=== PATIENT | female | born 1955 | race Caucasian/White ===

== ENCOUNTER 2019-03-19 11:34 | Observation (INO) | payer BC ==
[~2019-03-19] VITALS: Ht 127 cm; Wt 85.4 kg
[2019-03-19] VITALS (7 sets, daily range): BP systolic 102–174; BP diastolic 67–92
--- NOTE | 2019-03-19 11:50 | NUR ---
PT A DIRECT ADMIT FROM DR. FOOTE. TO ICU BED 6. PT TRANSFERRED SELF FROM TO BED. PT PRESENTED DIAPHORETIC, C/O CP. ST ON TELEMETRY HR 102, B/P 174/92, RR-21, T- 99.2. PT WT 188.4LBS ON STANDING SCALE. RESPIRATIONS EVEN/UNLABORED. ASSESSMENT COMPLETED. PT ORIENTED TO UNIT, BED AND CALL LIGHT SYSTEM. CALL LIGHT IN REACH. WILL MONITOR.
--- NOTE | 2019-03-19 12:00 | NUR ---
DR. FOOTE AT BEDSIDE FOR ASSESSMENT AND TO DISCUSS PLAN OF CARE.
--- NOTE | 2019-03-19 12:05 | NUR ---
RT AT BEDSIDE FOR O2 HUMIDIFIER, EKG AND ABG. LAB AT BEDSIDE FOR BLOOD DRAW.
[2019-03-19 12:44] LABS: HEMATOCRIT 40.9 % (37.0-47.0); HEMOGLOBIN 13.5 g/dl (12.0-16.0); IMMATURE GRANULOCYTES 0.8 % (0.0-5.0); MEAN CELL VOLUME 87.4 fL CALC (80.0-100.0); MEAN CORPUSCULAR HGB 28.8 pG CALC (26.0-32.0); NEUT# 11.19 thou/uL (2.00-7.15); RED BLOOD COUNT 4.68 mill/uL (4.20-5.60); RED CELL DISTRI WIDTH 13.5 % (11.5-15.5)
--- NOTE | 2019-03-19 13:00 | NUR ---
RADIOLOGY AT BEDSIDE FOR CXR.
[2019-03-19 13:09] LABS: ANION GAP 14 (6-22 (CALC)); BUN 10 mg/dL (8-23); BUN/CREATININE RATIO 21 (12-20 (CALC)); CARBON DIOXIDE 26 mmol/l (22-30); CHLORIDE 106 mmol/l (95-108); CREATININE 0.5 mg/dL (0.5-1.0); GFR > 60 ML/MIN (>=60 (CALC)); GFR FOR AFR.AMER. > 60 ML/MIN (>=60 (CALC)); POTASSIUM 4.1 mmol/l (3.5-5.1); SODIUM 141 mmol/l (137-146)
--- NOTE | 2019-03-19 14:00 | NUR ---
PT RESTING IN BED WATCHING TV, PT DENIES CP AT THIS TIME. VSS, AFEBRILE AT THIS TIME. PT STATES FEELING MUCH BETTER. CALL LIGHT IN REACH. WILL MONITOR.
[2019-03-19 14:40] LABS: URINE BILIRUBIN - DIPSTICK NEGATIVE (NEGATIVE); URINE BLOOD DIPSTICK NEGATIVE (NEGATIVE); URINE COLOR YELLOW; URINE GLUCOSE - DIPSTICK NEGATIVE (NEGATIVE); URINE KETONE NEGATIVE (NEGATIVE); URINE LEUK ESTERASE NEGATIVE (Negative); URINE NITRITE - DIPSTICK NEGATIVE (Negative); URINE PROTEIN - DIPSTICK NEGATIVE (NEG-TRACE); URINE UROBILINOGEN - DIPSTICK 0.2 E.U./dL (0.2)
[2019-03-19 14:42] LABS: URINE CLARITY CLEAR
[2019-03-19] MEDS ORDERED: NITROFURANTN100 M2 PO (14:46)
[2019-03-19] MEDS ORDERED: IBUPROFEN 200200 MG PO (14:48)
[2019-03-19] MEDS ORDERED: EXCEDRIN MIGRAINE PO (14:49)
[2019-03-19] MEDS ORDERED: VITAMIN7 PO (14:54)
[2019-03-19] MEDS ORDERED: VITAMI16 PO (14:54)
[2019-03-19] MEDS ORDERED: [UNRECOGNIZED DRUG - OTHER] PO (14:55)
--- NOTE | 2019-03-19 16:00 | NUR ---
PT RESTING IN BED WITH EYES CLOSED, SR ON TELEMETRY HR 72. PT OFFERS NO COMPLAINTS AT THIS TIME. CALL LIGHT IN REACH. WILL MONITOR.
--- NOTE | 2019-03-19 17:38 | NUR ---
RT AT BEDSIDE FOR 2ND EKG.
--- NOTE | 2019-03-19 17:40 | NUR ---
DAUGHTER AT THE BEDSIDE.
--- NOTE | 2019-03-19 19:01 | NUR ---
REPORT FROM SEBAS NINA. PT SITTING UP IN BED WATCHING TV. ALERT AND ORIENTED. PT DENIES ANY PAIN OR DISCOMFORT. NO DISTRESS NOTED. SAT 96% ON 02 VIA NC @2L/M RESPIRATIONS EVEN AND UNLABORED. IV SITE APPEARS HEALTHY WITH IV FLUIDS INFUSING. DISCUSSED POC. PT VERBALIZED UNDERSTANDING. PT DENIES ANY CURRENT WANTS OR NEEDS. CALL LIGHT WITHIN REACH. WILL CONTINUE TO MONITOR.
--- NOTE | 2019-03-19 20:48 | NUR ---
ASSISTED PT TO BSC WITH STAND BY ASSIST. PT VOIDED WITHOUT DIFFICULTY. ASSISTED BACK TO BED. PT DENIES ANY CURRENT WANTS OR NEEDS. NO DISTRESS NOTED. CALL LIGHT WITHIN REACH. WILL CONTINUE TO MONITOR.
--- NOTE | 2019-03-19 23:02 | NUR ---
PT RESTING IN BED WITH EYES CLOSED. NO DISTRESS NOTED. RESPIRATIONS EVEN AND UNLABORED O2 SATS 97% ON 2L/M VIA NC. CALL LIGHT WITHIN REACH. WILL CONTINUE TO MONITOR.
[2019-03-20] VITALS (7 sets, daily range): BP systolic 102–142; BP diastolic 58–77
--- NOTE | 2019-03-20 00:01 | NUR ---
ASSISTED PT TO BSC. PT VOIDED WITHOUT DIFFICULTY. PT C/O HEADACHE AT THIS TIME. MEDICATED WITH PRN APAP. ASSISTED BACK TO BED AND PLACED BACK ON MONITORS. PT DENIES ANY OTHER WANT OR NEEDS. CALL LIGHT WITHIN REACH. WILL CONTINUE TO MONITOR.
--- NOTE | 2019-03-20 02:05 | NUR ---
PT RESTING IN BED WITH EYES CLOSED. NO DISTRESS NOTED. VS STABLE. CALL LIGHT WITHIN REACH. WILL CONTINUE TO MONITOR.
--- NOTE | 2019-03-20 04:40 | NUR ---
DEVELOPMENT OFFICER IN ROOM TO OBTAIN MORNING LABS.
[2019-03-20 06:00] LABS: HEMOGLOBIN 11.8 g/dl (12.0-16.0); IMMATURE GRANULOCYTES 1.7 % (0.0-5.0); MEAN CORPUSCULAR HGB 28.7 pG CALC (26.0-32.0); MEAN CORPUSCULAR HGB CONC 31.9 g/L CALC (32.0-36.0); NEUT# 4.35 thou/uL (2.00-7.15); RED BLOOD COUNT 4.11 mill/uL (4.20-5.60); RED CELL DISTRI WIDTH 13.8 % (11.5-15.5)
--- NOTE | 2019-03-20 06:03 | NUR ---
PT C/O HEADACHE. MEDICATED WITH PO APAP AT THIS TIME. CALL LIGHT WITHIN REACH. WILL CONTINUE TO MONITOR.
[2019-03-20 06:20] LABS: ALBUMIN 3.3 g/dL (3.2-5.0); ALKALINE PHOSPHATASE 94 u/l (38-126); ANION GAP 8 (6-22 (CALC)); BILIRUBIN, TOTAL 0.3 mg/dL (0.0-1.4); BUN 13 mg/dL (8-23); BUN/CREATININE RATIO 24 (12-20 (CALC)); CARBON DIOXIDE 28 mmol/l (22-30); CHLORIDE 106 mmol/l (95-108); CREATININE 0.5 mg/dL (0.5-1.0); GFR > 60 ML/MIN (>=60 (CALC)); GFR FOR AFR.AMER. > 60 ML/MIN (>=60 (CALC)); POTASSIUM 4.1 mmol/l (3.5-5.1); SGOT/AST 23 u/l (9-36); SODIUM 138 mmol/l (137-146)
[2019-03-20 06:22] LABS: CHOLESTEROL HDL RATIO 3.4 (<4.4 (CALC))
--- NOTE | 2019-03-20 07:30 | NUR ---
PT RESTING IN BED, NO SIGNS OF DISTRESS NOTED, RESP EVEN AND UNLABORED. PT ALERT AND ORIENTED X3. ASSISTED PT OUT OF BED, PT USED, URINAL. DISCUSSED POC, PT VERBALIZED UNDERSTANDING. DENIES ANY NEEDS OR COMPLAINTS AT THIS TIME. ASSESSMENT COMPLETED, CALL LIGHT IN REACH,CONTINUE TO MONITOR.
--- NOTE | 2019-03-20 07:35 | NUR ---
PT RESTING IN BED, ASSISTED TO BSC, PT ALERT AND ORIENTED X3, PT STATES SHE HAS A HEADACHE, PT WAS MEDICATED WITH TYLENOL PREVIOUSLY, ICE PACK FOR HEAD PROVIDED. DISCUSSED POC, PT VERBALIZED UNDERSTANDING. 02 2L NC, ASSESSMENT COMPLETED. CALL LIGHT IN REACH,CONTINUE TO MONITOR.
--- NOTE | 2019-03-20 09:45 | NUR ---
MD AT BEDSIDE DISUCUSSED POC WITH PT
[2019-03-20] MEDS ORDERED: ASPIRIN EC325 M1 PO (13:02)
[2019-03-20] MEDS ORDERED: LOPRESSOR 550 MG/TAB PO (13:02)
[2019-03-20] MEDS ORDERED: PANTOPRAZOLE SO40 M1 PO (13:02)
--- NOTE | 2019-03-20 13:37 | NUR ---
IV site discontinued, cath intact. No edema , no redness, voices no discomfort.
--- NOTE | 2019-03-20 14:00 | NUR ---
RN AT BEDSIDE DISCUSSED DISCHARGE INFORMATION, CONTINUE TO MONITOR.
--- NOTE | 2019-03-20 14:10 | NUR ---
Discharge instructions given. Patient verbalizes understanding of same. Discharged in stable condition via Wheelchair to Home with *Other. All belongings sent with pt.
== END 2019-03-20 14:10 | disposition home or self-care (01) | DRG 305 ==
LOC: ICU 11:34
PROVIDERS: ADMIT Internal Medicine Geriatric Medicine; ATTEND Internal Medicine
DX: I16.0 Hypertensive urgency (principal); I10 Essential (primary) hypertension; F41.1 Generalized anxiety disorder

== ENCOUNTER 2019-07-01 09:51 | Day surgery (SDC) | payer BC ==
[~2019-07-01] VITALS: Ht 147.3 cm; Wt 85.3 kg
[~2019-07-01 09:51] MED LIST: ASPIRIN EC325 M1 PO; CALCI23 PO; CALCIUM250 M1; EXCEDRIN MIGRAINE PO; IBUPROFEN 200200 MG PO; LOPRESSOR 550 MG/TAB PO; LOPRESSOR50 M2 PO; MULTIVITAMIN AD1 TA1 PO; NITROFURANTN100 M2 PO; PANTOPRAZOLE SO40 M1 PO; VITAMI16 PO; VITAMIN C500 M6 PO; VITAMIN D3400 UNI2 PO; VITAMIN7 PO; [UNRECOGNIZED DRUG - OTHER] PO
[2019-07-01] MEDS ORDERED: PERCOCET 5/325M1 TAB PO (12:19)
[2019-07-01 13:13] VITALS: BP 142/73
== END 2019-07-01 13:30 | disposition home or self-care (01) | DRG 419 ==
LOC: ORM 09:51
PROVIDERS: ATTEND Surgery
PROC: 0FT44ZZ Resection of Gallbladder, Percutaneous Endoscopic Approach (ICD-10-PCS; principal; 2019-07-01)
DX: K81.1 Chronic cholecystitis (principal); Z01.818 Encounter for other preprocedural examination; K83.9 Disease of biliary tract, unspecified; K21.9 Gastro-esophageal reflux disease without esophagitis; Z86.711 Personal history of pulmonary embolism; Z98.890 Other specified postprocedural states
CPT/HCPCS: J0131; J2710

== ENCOUNTER 2022-09-10 12:23 | Observation (INO) | payer MEDICARE ==
[2022-09-10] VITALS (17 sets, daily range): BP systolic 122–205; BP diastolic 66–144
[~2022-09-10] VITALS: Ht 147.3 cm; Wt 95.0 kg
[~2022-09-10 12:23] MED LIST changes: +PERCOCET 5/325M1 TAB PO
--- NOTE | 2022-09-10 13:15 | NUR ---
PATIENT TO ROOM 2
--- NOTE | 2022-09-10 13:41 | NUR ---
Reassessment of patient completed. No distress noted.
[2022-09-10 13:57] LABS: URINE BILIRUBIN - DIPSTICK NEGATIVE (NEGATIVE); URINE BLOOD DIPSTICK NEGATIVE (NEGATIVE); URINE COLOR YELLOW; URINE GLUCOSE - DIPSTICK NEGATIVE (NEGATIVE); URINE KETONE NEGATIVE (NEGATIVE); URINE LEUK ESTERASE NEGATIVE (NEGATIVE); URINE PROTEIN - DIPSTICK NEGATIVE (NEG-TRACE); URINE SPECIFIC GRAVITY 1.015; URINE UROBILINOGEN - DIPSTICK 0.2 E.U./dL (0.2)
[2022-09-10 14:04] LABS: URINE NITRITE - DIPSTICK NEGATIVE (Negative)
[2022-09-10 14:13] LABS: BASO% 0.4 % (0-3); EOS% 1.7 % (0-8); HEMATOCRIT 41.8 % (37.0-47.0); HEMOGLOBIN 13.8 g/dl (12.0-16.0); IMMATURE GRANULOCYTES 0.4 % (0.0-5.0); LYMPH% 14.8 % (15-41); MEAN CELL VOLUME 90.3 fL CALC (80.0-100.0); MEAN CORPUSCULAR HGB 29.8 pG CALC (26.0-32.0); NEUT# 5.56 thou/uL (2.00-7.15); NEUT% 73.7 % (42-76); RED BLOOD COUNT 4.63 mill/uL (4.20-5.60); RED CELL DISTRI WIDTH 13.1 % (11.5-15.5)
[2022-09-10 14:27] LABS: ALBUMIN 4.2 g/dL (3.2-5.0); ALKALINE PHOSPHATASE 109 u/l (38-126); ANION GAP 10 (6-22 (CALC)); BUN 16 mg/dL (8-23); BUN/CREATININE RATIO 21 (12-20 (CALC)); CARBON DIOXIDE 24 mmol/l (22-30); CHLORIDE 107 mmol/l (95-108); CREATININE 0.8 mg/dL (0.5-1.0); GFR FOR AFR.AMER. > 60 ML/MIN (>=60 (CALC)); GFR OTHER RACES > 60 ML/MIN (>=60 (CALC)); LIPASE 108 u/l (23-300); SGOT/AST 27 u/l (9-36); SODIUM 136 mmol/l (137-146); TOTAL PROTEIN 7.2 g/dL (6.3-8.2)
[2022-09-10 14:28] LABS: BILIRUBIN, TOTAL 0.1 mg/dL (0.02-1.3)
--- NOTE | 2022-09-10 14:49 | NUR ---
Reassessment of patient completed. No distress noted.
--- NOTE | 2022-09-10 15:01 | NUR ---
PT SITTING UP IN BED, TOLERATING IV MEDS OK, VOICE NO CONCERNS.
--- NOTE | 2022-09-10 16:24 | NUR ---
OPERATING SYSTEMS PROGRAMMER ASSISTED PT TO BSC, VOIDED CLEAR, YELLOW URINE.
--- NOTE | 2022-09-10 17:25 | NUR ---
REPORT CALLED TO JAYMIE, PATIENT READIED FOR TRANSPORT TO FLOOR VIA STRETCHER.
--- NOTE | 2022-09-10 19:15 | NUR ---
AWAKE ALERT ORIENTED X4 DISCUSSED PLAN OF CARE. PATENT COMPLAIN OF R FLANK PAIN MEDICATED FOR RELIEF OF PAIN . BEDSIDE COMMODE PLACED CLOSE FOR CONVIENCE AND SAFETY.
--- NOTE | 2022-09-10 22:55 | NUR ---
PATIEN COMPLAIN BURNING HEARTBURN FEELING WIH EPISODE OF GASTRIC REFLUX. LUNG SOUNDS WITH COURSE CRACKLES POSTERIO LUNG RAO. DIMISHED AT BIBASILAR LUNG RAO. OXYGEN SATUATION 93% IV FLUIDS PLACED ON HOLD
--- NOTE | 2022-09-11 | NUR ---
PATIEN LYING IN BED HED OF BED UP 30 DEGREES. RESPIRATIONS EVEN AND UNLABORED OXYGEN SATUATION IMPROVED TO 98% LUNG SOUND WITH SOFT COURSNESS BILATERALLY.
--- NOTE | 2022-09-11 04:00 | NUR ---
RESTING QUIETLY IN BED NO RESPIRATORY DISTRESS NOTED POSTURE RELAXED. LUNG SOUNDS CLEAR BILATERALLY DENIES PAIN AT THIS TIME.
[2022-09-11 04:53] VITALS: BP 106/41
--- NOTE | 2022-09-11 06:44 | NUR ---
RESTING QUIETLY NO ACUTE DISTRESS NOTED AT THIS TIME. RESPIRATIONS EVEN AND UNLABORED
[2022-09-11 07:04] VITALS: BP 117/69
--- NOTE | 2022-09-11 08:00 | NUR ---
PT LAYING IN BED RESTING WITH EYES CLOSED, AWAKENED TO SPEECH, A&OX3. IV SITE TO RIGHT HAND PATENT AND CLEAN. PT HAS BEDSIDE COMMODE AND INTRUCTED TO CALL NURSE FOR ASSISTANCE WITH TOILETING.
--- NOTE | 2022-09-11 10:00 | NUR ---
PT C/O RIGHT SIDED FLANK PAIN AT 9 ON PAIN SCALE. ADMINISTERED PAIN MEDICATION VIA IV. WILL REASSES PAIN.
--- NOTE | 2022-09-11 10:15 | NUR ---
PT STATES HER PAIN HAS IMPROVED AND IS NOW AT A 4 ON PAIN SCALE.
--- NOTE | 2022-09-11 12:00 | NUR ---
PTIN BED RESTING WITH EYE OPEN. IV SITE TO R ARM INTACT AND FLUSHING WELL, IV ANTIBIOTICS STARTED. PT C/O PAIN AT 6 ON PAIN SCALE TO THE RIGHT FLANK, WILL MEDICATE WHEN NEXT DOSE IS AVAILABLE. OFFERED TO REPOSITION TO OFFER COMFORT. CALL LIGHT AND BEDSIDE TABLE WITHIN REACH
[2022-09-11 12:05] VITALS: BP 99/51
--- NOTE | 2022-09-11 13:30 | NUR ---
PY LYING IN BED , HEAD OF BED UP. I ATTEMPTED TO FLUSH IV SITE TO RIGHT HAND, PAIN NOTED AND PUFFINESS AT SITE. IV SITE TO RIGHT HAND REMOVED AND NEW IV SITE 22 TO THE RFA INSERTED BY KEI NINA. NEW IV SITE CLEAN AND FLUSHING.
--- NOTE | 2022-09-11 16:00 | NUR ---
PT LAYING IN BED WITH HEAD OF BED UP, NO CHANGE IN MENTAL STATUS. PT HAS IV TO RFA PATENT WITH NS @100 ML/HR. CALL LIGHT WITHIN REACH
[2022-09-11 17:49] VITALS: BP 146/73
--- NOTE | 2022-09-11 18:15 | NUR ---
PT RETURNED FROM CT C/O RIGH FLANK PAIN AT 10 ON PAIN SCALE. MEDICATED WITH MORPHINE IV AND ZOFRAN IV FOR NAUSEA. AFTER ADMINISTERING AND FLUSHING THE IV SITE TURNED RED AND AND PT C/O ITCHING AT IV SITE. STOPPED IV FLUIDS INTIL NEW IV SITE CAN BE STARTED.
[2022-09-11 19:12] VITALS: BP 123/66
--- NOTE | 2022-09-11 20:00 | NUR ---
PATIENT IN BED RESTING. C/O SLIGHT ABDOMINAL DISCOMFORT. CONT. TO MONITOR
[2022-09-11 23:35] VITALS: BP 116/66
[2022-09-12] VITALS (7 sets, daily range): BP systolic 108–140; BP diastolic 56–73
--- NOTE | 2022-09-12 | NUR ---
PATIENT SLEEPING. I.V FLUID INFUSING WELL. NO S/S OF DISTRESS AT THIS TIME.
[2022-09-12 06:08] LABS: BASO% 1.1 % (0-3); EOS% 3.5 % (0-8); HEMATOCRIT 36.1 % (37.0-47.0); IMMATURE GRANULOCYTES 0.5 % (0.0-5.0); LYMPH% 20.8 % (15-41); MEAN CELL VOLUME 92.1 fL CALC (80.0-100.0); MEAN CORPUSCULAR HGB 30.1 pG CALC (26.0-32.0); MEAN CORPUSCULAR HGB CONC 32.7 g/dL CAL (32.0-36.0); MONO% 10.7 % (2-13); NEUT# 3.48 thou/uL (2.00-7.15); NEUT% 63.4 % (42-76); RED BLOOD COUNT 3.92 mill/uL (4.20-5.60); RED CELL DISTRI WIDTH 13.2 % (11.5-15.5)
[2022-09-12 06:17] LABS: HEMOGLOBIN 11.8 g/dl (12.0-16.0)
[2022-09-12 06:35] LABS: ALBUMIN 3.4 g/dL (3.2-5.0); ALKALINE PHOSPHATASE 86 u/l (38-126); ANION GAP 7 (6-22 (CALC)); BUN 9 mg/dL (8-23); BUN/CREATININE RATIO 11 (12-20 (CALC)); CARBON DIOXIDE 26 mmol/l (22-30); CHLORIDE 109 mmol/l (95-108); CREATININE 0.8 mg/dL (0.5-1.0); GFR FOR AFR.AMER. > 60 ML/MIN (>=60 (CALC)); GFR OTHER RACES > 60 ML/MIN (>=60 (CALC)); POTASSIUM 3.9 mmol/l (3.5-5.1); SGOT/AST 32 u/l (9-36); SODIUM 138 mmol/l (137-146); TOTAL PROTEIN 5.9 g/dL (6.3-8.2)
[2022-09-12 06:36] LABS: BILIRUBIN, TOTAL 0.2 mg/dL (0.02-1.3)
--- NOTE | 2022-09-12 07:41 | NUR ---
PT RESTING COMFORTABLY. VITAL SIGNS STABLE. NO NEEDS AT THIS TIME.
--- NOTE | 2022-09-12 12:00 | NUR ---
PT RESTING COMFORTABLY IN CHAIR. VITAL SIGNS STABLE. NO NEEDS AT THIS TIME.
--- NOTE | 2022-09-12 16:22 | NUR ---
PT RESTING IN BED COMFORTABLY. VITAL SIGNS STABLE. NO NEEDS AT THIS TIME.
--- NOTE | 2022-09-12 19:00 | NUR ---
ASSUMED CARE FOR PATIENT FROM DAYSHIFT RN. PT IS STABLE. AOX4, RA, FULL LIQUID DIET, UP TO BSC. 22 LFA WORKS WELL AT THIS TIME. CONT. TO MONITOR PATIENT. VSS. NAD.
[2022-09-13] VITALS: BP 140/70
--- NOTE | 2022-09-13 00:07 | NUR ---
STOOL SAMPLE COLLECTED AND SENT TO LAB.
[2022-09-13 04:20] VITALS: BP 131/60
[2022-09-13 05:36] LABS: EOS% 4.1 % (0-8); HEMATOCRIT 36.4 % (37.0-47.0); HEMOGLOBIN 11.7 g/dl (12.0-16.0); IMMATURE GRANULOCYTES 0.6 % (0.0-5.0); LYMPH% 16.5 % (15-41); MEAN CELL VOLUME 92.2 fL CALC (80.0-100.0); MEAN CORPUSCULAR HGB 29.6 pG CALC (26.0-32.0); MEAN CORPUSCULAR HGB CONC 32.1 g/dL CAL (32.0-36.0); NEUT# 3.38 thou/uL (2.00-7.15); NEUT% 68.8 % (42-76); RED BLOOD COUNT 3.95 mill/uL (4.20-5.60); RED CELL DISTRI WIDTH 13.2 % (11.5-15.5)
[2022-09-13 05:42] LABS: ALBUMIN 3.4 g/dL (3.2-5.0); ALKALINE PHOSPHATASE 74 u/l (38-126); ANION GAP 11 (6-22 (CALC)); BUN 7 mg/dL (8-23); BUN/CREATININE RATIO 9 (12-20 (CALC)); CARBON DIOXIDE 22 mmol/l (22-30); CHLORIDE 108 mmol/l (95-108); CREATININE 0.7 mg/dL (0.5-1.0); GFR FOR AFR.AMER. > 60 ML/MIN (>=60 (CALC)); GFR OTHER RACES > 60 ML/MIN (>=60 (CALC)); POTASSIUM 3.9 mmol/l (3.5-5.1); SGOT/AST 26 u/l (9-36); SODIUM 137 mmol/l (137-146); TOTAL PROTEIN 5.9 g/dL (6.3-8.2)
[2022-09-13 06:28] VITALS: BP 101/52
[2022-09-13 06:49] VITALS: BP 101/52
--- NOTE | 2022-09-13 07:34 | NUR ---
PT RESTING COMFORTABLY IN BED. VITAL SIGNS STABLE. NO FURTHER NEEDS AT THIS TIME.
[2022-09-13] MEDS ORDERED: CIPROFLOXACN500 MG PO (10:49)
[2022-09-13] MEDS ORDERED: METRONIDAZOLE500 MG PO (10:49)
[2022-09-13] MEDS ORDERED: DICYCLOMINE HCL10 MG PO (10:50)
--- NOTE | 2022-09-13 11:44 | NUR ---
PT RESTING COMFORTABLY VITAL SIGNS STABLE. NO FURTHER NEEDS
[2022-09-13 12:09] VITALS: BP 128/62
--- NOTE | 2022-09-13 15:10 | NUR ---
DC INSTRUCTIONS GIVEN. MEDICATION INSTRUCTIONS GIVEN. IV DCED. TELE DCED. PT TAKEN TO CAR IN WC BY ME.
== END 2022-09-13 15:10 | disposition home or self-care (01) ==
LOC: ED 12:23 → ED-I 15:50 → ED 16:54 → MS2 16:55
PROVIDERS: Nurse Practitioner; Nurse Practitioner Family; ADMIT Internal Medicine; ATTEND Internal Medicine
DX: R10.31 Right lower quadrant pain (principal); R19.7 Diarrhea, unspecified; R60.0 Localized edema; K76.89 Other specified diseases of liver; I10 Essential (primary) hypertension; K21.9 Gastro-esophageal reflux disease without esophagitis; E78.5 Hyperlipidemia, unspecified; Z90.49 Acquired absence of other specified parts of digestive tract
CPT/HCPCS: J1650; Q9967